=== PATIENT | female | born 1980 | race Caucasian/White ===

== ENCOUNTER 2017-06-12 09:09 | Emergency (ER) | payer OTHER ==
[~2017-06-12] VITALS: Ht 167.6 cm; Wt 73.1 kg
[~2017-06-12 09:09] MED LIST: INDOCIN25 MG PO; METHADONE10 MG PO; Methadone PO; Motrin PO; NATALCARE RX1 TABLET PO; PROMETHAZINE HC25 M1; SERTRALINE HCL25 MG; TOPIRAGEN100 MG; Topamax PO; VYVANSE20 MG PO
[2017-06-12 13:20] VITALS: BP 128/79
[2017-06-13] MEDS ORDERED: KEFLEX500 MG PO (06:54)
== END 2017-06-12 14:48 | disposition left against medical advice (07) ==
LOC: EME 09:09
DX: S50.852A Superficial foreign body of left forearm, initial encounter (principal); W46.0XXA Contact with hypodermic needle, initial encounter; F90.9 Attention-deficit hyperactivity disorder, unspecified type; F17.200 Nicotine dependence, unspecified, uncomplicated
CPT/HCPCS: 73090; 76882; 99281; 99284

== ENCOUNTER 2017-06-13 03:45 | Emergency (ER) | payer OTHER ==
[~2017-06-13] VITALS: Ht 167.6 cm; Wt 73.9 kg
[2017-06-13 06:47] VITALS: BP 128/94
[2017-06-13] MEDS ORDERED: KEFLEX500 MG PO (06:54)
== END 2017-06-13 07:33 | disposition home or self-care (01) ==
LOC: EME 03:45
PROC: 0HCEXZZ Extirpation of Matter from Left Lower Arm Skin, External Approach (ICD-10-PCS; principal; 2017-06-13)
DX: S51.842A Puncture wound with foreign body of left forearm, initial encounter (principal); F90.9 Attention-deficit hyperactivity disorder, unspecified type; F41.9 Anxiety disorder, unspecified; F17.200 Nicotine dependence, unspecified, uncomplicated; Z87.442 Personal history of urinary calculi
CPT/HCPCS: 71046; 73090; 93005; 99281; 99284